=== PATIENT | female | born 1945 | race Caucasian/White ===

== ENCOUNTER 2016-10-10 22:04 | Inpatient (IN) | payer OTHER ==
[~2016-10-10] VITALS: Ht 163.8 cm; Wt 113.3 kg
[~2016-10-10 22:04] MED LIST: ASPIRIN EC325 MG PO; CELECOXIB200 MG PO; CLARITIN-D 21 TABLET PO; ENDOCET 5-3251 EACH PO; FERROUS SULFAT325 MG PO; FINACEA 15% GEL50 GM TP; HYDROCHLOROTHIA25 MG PO; LODINE300 MG PO; SENNA PLUS TAB1 EACH PO; SYNTHROID75 MCG PO; TYLENOL EXTRA500 MG PO
[2016-10-11 07:30] VITALS: BP 132/70
[2016-10-11 12:11] LABS: HEMATOCRIT 40.5 % (36.0-46.0); MCH 27.8 PG (29.0-34.0); MCHC 29.9 G/DL (30.0-36.0); MCV 93.1 FL (83-99); MEAN PLAT.VOLUME 9.3 uM^3 (9.5-12.4); PLATELET COUNT 190 K/uL (156-360); RBC DIS.WIDTH-CV 15.9 % (11.8-14.6); RBC DIS.WIDTH-SD 54.2 % (39-53); RED BLOOD COUNT 4.35 M/uL (3.80-5.20); WHITE BLOOD COUNT 5.1 K/uL (4.1-10.2)
[2016-10-11 14:15] VITALS: BP 128/62
[2016-10-11 20:05] VITALS: BP 126/59
[2016-10-12 00:25] VITALS: BP 118/57
[2016-10-12 04:10] VITALS: BP 116/55
[2016-10-12 06:26] LABS: HEMATOCRIT 39.6 % (36.0-46.0); MCV 91.5 FL (83-99)
[2016-10-12 06:55] LABS: ANION GAP 9 MEQ/L (2-14); CHLORIDE 103 MEQ/L (99-109); GFR ESTIMATE (CALCULATED) 52 mL/min/; GLUCOSE 128 mg/dL (70-99); POTASSIUM 3.6 MEQ/L (3.7-5.4); SAMPLE HEMOLYSIS CHECK 0; SAMPLE ICTERIC CHECK 0; SAMPLE LIPEMIA CHECK 0; SODIUM 137 MEQ/L (136-147); UREA NITROGEN (BUN) 23 mg/dL (9-23)
[2016-10-12 07:45] VITALS: BP 120/58
[2016-10-12 11:36] VITALS: BP 125/65
[2016-10-12 15:35] VITALS: BP 158/68
[2016-10-12 20:21] VITALS: BP 121/56
[2016-10-13] VITALS: BP 135/62
[2016-10-13 04:54] VITALS: BP 141/67
[2016-10-13 07:06] LABS: HEMATOCRIT 38.3 % (36.0-46.0); MCV 89.9 FL (83-99)
[2016-10-13 07:33] VITALS: BP 137/60
[2016-10-13 07:36] LABS: ANION GAP 9 MEQ/L (2-14); CHLORIDE 105 MEQ/L (99-109); GFR ESTIMATE (CALCULATED) > 59 mL/min/; GLUCOSE 100 mg/dL (70-99); SAMPLE HEMOLYSIS CHECK 0; SAMPLE ICTERIC CHECK 0; SAMPLE LIPEMIA CHECK 0; SODIUM 140 MEQ/L (136-147); UREA NITROGEN (BUN) 15 mg/dL (9-23)
[2016-10-13] MEDS ORDERED: DOCUSATE SODIU100 MG PO (08:22)
[2016-10-13] MEDS ORDERED: LOVENOX40 MG/0.4 SC (08:22)
[2016-10-13] MEDS ORDERED: ENDOCET 5-3251 EACH PO (08:22)
[2016-10-13 11:13] VITALS: BP 141/76
[2016-10-13 15:08] VITALS: BP 135/66
[2016-10-13 16:15] VITALS: BP 126/60
[2016-10-14 00:16] VITALS: BP 112/58
[2016-10-14 07:26] VITALS: BP 131/61
== END 2016-10-14 12:00 | disposition home or self-care (01) | DRG 470 ==
LOC: ENRESERV 22:04 → 3EAST 10-11 06:46 → 2SOUTH 10-11 06:46 → 3WEST 10-11 06:46 → 2SOUTH 10-11 08:58 → 3WEST 10-11 13:56 → 2SOUTH 10-11 14:41 → 3WEST 10-13 06:40 → ENRESERV 10-13 06:44 → 3EAST 10-13 15:19
PROVIDERS: Orthopaedic Surgery; Physician Assistant
PROC: 0SRC0J9 Replacement of Right Knee Joint with Synthetic Substitute, Cemented, Open Approach (ICD-10-PCS; principal; 2016-10-11)
DX: M17.11 Unilateral primary osteoarthritis, right knee (principal); Z68.41 Body mass index [BMI] 40.0-44.9, adult; E66.01 Morbid (severe) obesity due to excess calories; E07.9 Disorder of thyroid, unspecified; Z96.652 Presence of left artificial knee joint; Z85.828 Personal history of other malignant neoplasm of skin; Z82.49 Family history of ischemic heart disease and other diseases of the circulatory system; Z80.9 Family history of malignant neoplasm, unspecified
CPT/HCPCS: 71010; 73560; 80048; 85014; 85018; 85027; 97530 GO; C1713; J0690; J1170; J1650; J2250; J2405; J3010; J7050